=== PATIENT | female | born 1985 | race Caucasian/White ===

== ENCOUNTER → 2020-02-26 15:06 | Outpatient (CLI) | payer BC, SELFPAY ==
--- NOTE | 2020-02-26 15:07 | US_ITS ---
PROCEDURE: US TRANSVAGINAL CLINICAL INDICATION: dub Abnormal uterine bleeding, heavy painful periods COMPARISON: No exams were available for comparison FINDINGS: UTERUS: 10cm x 6cmx 5cm. There is an IUD in place in expected location. Endometrial thickness was not able to be measured due to the artifact from the IUD. LEFT OVARY: [id number] with a volume of 63.8ml. RIGHT OVARY: [id number] with a volume of 30.5ml. There is a 3.4 x 2.3 cm simple appearing right ovarian cyst. There is a 4.3 cm left ovarian cyst with mural thickening along its lateral margin. Follow-up is suggested. No cul-de-sac fluid apparent. IMPRESSION: There is an IUD in place. Simple appearing right ovarian cyst with a complex appearing left ovarian cyst with mural nodule laterally. Recommend 6-8 week follow-up to confirm stability. If this persists then, MRI may be needed for further evaluation. Dictated by: Chip Han MD 02/26/2020 16:36 Chip Han MD in [place] 02/26/2020 16:36
== END ==
PROVIDERS: Visit Provider Nurse Practitioner Obstetrics & Gynecology
DX: N93.8 Other specified abnormal uterine and vaginal bleeding (principal)
CPT/HCPCS: 76830

== ENCOUNTER → 2020-03-03 08:23 | Outpatient (CLI) | payer BC, SELFPAY ==
[2020-03-03 09:33] LABS: Basophils % 0.4 % (0.1-2.0); Eosinophils # 0.2 K/mm3 (0.0-0.4); Eosinophils % 2.2 % (0.1-12.0); Hemoglobin 13.8 g/dL (12.2-16.2); Lymphocytes # 2.1 K/mm3 (0.7-4.5); Lymphocytes % 29.2 % (10-50); Mean Corpuscular HGB Conc 31.4 g/dL (31.8-35.4); Mean Corpuscular Hemoglobin 29.4 pg (27.0-31.2); Mean Corpuscular Volume 93.6 fl (81-99); Mean Platelet Volume 6.6 fl (7.4-10.4); Monocytes # 0.3 K/mm3 (0.1-1.0); Monocytes % 4.6 % (1.7-9.3); Neutrophils # 4.5 K/mm3 (1.8-7.8); Neutrophils % 63.5 % (37.0-80.0); Platelet Count 344 K/mm3 (142-424); Red Blood Count 4.71 M/mm3 (4.20-5.40); Red Cell Distribution Width 12.7 % (11.5-17.5); White Blood Count 7.1 K/mm3 (4.8-10.8)
[2020-03-03 09:44] LABS: Chloride 103 mmol/L (98-107); Potassium 4.3 mmoL/L (3.5-5.1); Sodium 138 mmol/L (136-145)
[2020-03-03 09:47] LABS: Anion Gap 13.3 mEq/L (5-15); Blood Urea Nitrogen 14 mg/dl (7-17); Carbon Dioxide 26 mmol/L (22.0-30.0); Estimated Glomerular Filt Rate 71 ml/min (>60); GFR (African American) 86 ML/MIN (>60)
[2020-03-03 09:48] LABS: Calcium 9.3 mg/dl (8.4-10.2); Glucose 93 mg/dl (74-100)
[2020-03-03 10:14] LABS: HCG Qualitative, Serum Negative (Negative)
[2020-03-03 12:13] LABS: Coronavirus 19 IgG Antibody Negative (Negative); Coronavirus 19 IgM Antibody Negative (Negative)
== END ==
PROVIDERS: Visit Provider Nurse Practitioner Obstetrics & Gynecology
DX: Z01.818 Encounter for other preprocedural examination (principal); N92.0 Excessive and frequent menstruation with regular cycle
CPT/HCPCS: 36415; 80048; 84703; 85025; 86328

== ENCOUNTER 2020-03-04 06:08 | Day surgery (SDC) | payer BC, SELFPAY ==
[2020-03-02 12:26] VITALS: BMI 32.9
[2020-03-04] VITALS (11 sets, daily range): BP systolic 119–149; BP diastolic 77–98; PULSE 73–87; RESP 12–18; TEMP 36.1–36.7; O2SAT 96–100
--- NOTE | 2020-03-04 07:07 | HMH.ANESCL ---
[facility] Anesthesia Checklist - Patient Identification Patient Identification: Arm Band - Structural Data Admitted From: Home Planned Operative Procedure/s: Hysteroscopy, D&C Novasure Ablation Consent for Planned Operative Procedure(s) Verified: Yes Verified Documents: Surgical Consent, History and Physical - NPO Status Verified Time NPO: 00:00 - Additional verifications Anesthesia Reactions: No Hx Blood Transfusions: No Blood Transfusion Reaction: No - Airway Assessment C-Spine Mobility Assessed: Yes (mp2) TMJ Mobility Assessed: Yes Dentition: Good Dentition - Neurological Assessment Level of Consciousness: Awake, Alert - Anesthesia Plan Anesthesia Risk discussed: Yes Anesthesia Plan: Verified ASA Class: II Anesthesia Type: General [facility] History I have reviewed the patient's past medical history: Yes Medical History: Denies:: Cancer, Diabetes Mellitus Type 1, Diabetes Mellitus Type 2, Internal Pacemaker, MRSA, Seizures *Have you ever received a pneumonia vaccine?: No *Have you received a flu vaccine this season?: No Other Medical History: Denies: Blood Transfusion Reaction Anesthesia experience/problems:: nac Other Surgeries: Yes: . No: Pacemaker Amputation: No Fractures: No - *Social History Last grade of school completed: Advanced degree Smoking Status: Never smoker Alcohol Intake: never Alcohol Intake Frequency:: holidays/special occasions only Substance Use Type: denies use *Occupational Status:: employed Housing: house Household Members: children *Travel in the last 8 weeks: None Family Hx:: Diabetes, Hypertension
--- NOTE | 2020-03-04 07:55 | P.OP_ITS ---
Date of procedure: 03/04/20 Pre-op Diagnosis:: Menorrhagia Post-op Diagnosis:: Menorrhagia Procedure performed:: Hysteroscopy, dilation and curettage, NovaSure ablation, removal of copper IUD Surgeon:: Junior Aldridge MD MACHINE SILK SCREEN PRINTER:: Fredy Christian Anesthesia: LMA Estimated blood loss (mL): 100 Clinical Note:: She is a 35-year-old lady who complains of extremely heavy periods. She has a copper IUD and despite this continued to have painful heavy periods. After having discussed the risks and benefits she elected to have a NovaSure ablation. She has not had her tubes tied and she will return in 2 weeks time for Nexplanon insertion. Operative findings:: She had a uterus that sounded to 8 cm. The width was 4.2 cm the length of the endometrial cavity was 6 cm. The endometrial cavity was somewhat erythematous and inflamed possibly consistent with chronic endometritis. The endometrium itself was quite thin. Operative note:: She was taken to the operating room where LMA anesthesia was found be adequate. She was prepped and draped in the normal sterile fashion in the lithotomy position. A weighted speculum was placed in the vagina and the anterior lip of the cervix was grasped with a tenaculum. I was able to grasp the strings of the copper IUD and remove it. The cervix was then dilated to approximately 6 mm. I then inserted a hysteroscope into the uterine cavity and the findings were as previously dictated. I then performed a gentle curettage with a medium curette. I then sounded the uterus and determine the length of the uterus. This was placed into the NovaSure device. The length of the endometrial cavity was 6 cm and the width was 4.2 cm. I then inserted the NovaSure device and determine the width of the endometrial cavity. I then ran the device through its program. I further inspected the endometrial cavity and was found to be completely charred. I then injected 30 cc of 0.5% ropivacaine at the 3:00, 5:00, 7:00, and 9:00 positions of the cervix. She tolerated procedure well and was taken to the recovery room in excellent condition. All sponge and instrument counts were correct. The estimated blood loss was less than 100 cc. Condition: stable Disposition: PACU Specimens:: Endometrial curettings Complications:: None
--- NOTE | 2020-03-04 08:01 | P.PN_ITS ---
[facility] Anesthesia Record Part I Intake, IV Amount: 1,000 Estimated blood loss (mL): 20 Urine output (mL): 100 Blood Pressure: 143/87 SaO2: 96 Pulse Rate: 78 Respiratory Rate: 12 Temperature: 98 F Patient is:: Awake, Stable Stable to PACU at:: 08:00
--- NOTE | 2020-03-04 10:31 | P.PN_ITS ---
[facility] Anesthesia Record Part II Discharge Time: 08:20 Destination: [facility] PACU nurse assessment reviewed?: Yes Patient Condition:: Good Anesthesia Complications:: None Swallowing reflex intact?: Yes Cyanosis?: No Blood Pressure: 149/98 Pulse Rate: 77 Temperature: 97.3 F Mental Status: Alert & Oriented Pain level:: 0 Nausea and/or vomitting:: None Intake, IV Amount: 1,500
== END 2020-03-04 09:09 | disposition home or self-care (01) ==
PROVIDERS: Visit Provider Nurse Practitioner Obstetrics & Gynecology
PROC: 0U5B8ZZ Destruction of Endometrium, Via Natural or Artificial Opening Endoscopic (ICD-10-PCS; CPT 58563; principal; 2020-03-04 07:30)
DX: N93.9 Abnormal uterine and vaginal bleeding, unspecified (principal); N92.0 Excessive and frequent menstruation with regular cycle; Z79.899 Other long term (current) drug therapy
CPT/HCPCS: 58301; 58563; J2405